=== PATIENT | female | born 1975 | race Caucasian/White ===

== ENCOUNTER 2021-03-07 17:59 | Emergency (ER) | payer BC, OTHER ==
[~2021-03-07] VITALS: Ht 177.8 cm; Wt 78.9 kg
[~2021-03-07 17:59] MED LIST: LEXAPRO20 MG PO; NAPROSYN500 MG PO
[2021-03-07 18:32] LABS: URINE BILIRUBIN NEGATIVE (Negative); URINE BLOOD 1+ (Negative); URINE CLARITY CLEAR; URINE GLUCOSE-RANDOM* NEGATIVE (Negative); URINE KETONES NEGATIVE (Negative); URINE LEUKOCYTES-REFLEX NEGATIVE (Negative); URINE NITRITE-REFLEX NEGATIVE (Negative); URINE PROTEIN (DIPSTICK) NEGATIVE (Negative); URINE SPECIFIC GRAVITY <= 1.005 (1.005-1.035); URINE UROBILINOGEN 0.2 E.U./dl (0.2-1.0)
[2021-03-07 18:33] LABS: URINE COLOR STRAW
[2021-03-07 18:41] LABS: BACTERIA-REFLEX None Seen /HPF (None Seen); SQUAMOUS 0-3 Few /LPF (0-3); URINE RBC 1-2 Rare /HPF (NONE SEEN); URINE WBC-REFLEX 0-5 Rare /HPF (0-5)
[2021-03-07 19:56] LABS: HEMATOCRIT 39.3 % (37.0-47.0); HEMOGLOBIN 12.9 gm/dL (12.0-15.0); MCH 31.3 pg (26.0-34.0); MCHC 32.8 g/dL (28.0-37.0); MCV 95.5 fL (80.0-100.0); RBC 4.11 mil/uL (4.20-5.00); RDW 13.7 % (10.5-14.5); WBC 5.1 thou/uL (4.0-11.0)
[2021-03-07 20:05] LABS: ANION GAP < 0 mmol/L (7-16); BUN 10 mg/dL (7-18); CALCIUM 8.5 mg/dL (8.5-10.1); CHLORIDE 100 mmol/L (98-107); CO2 35 mmol/L (21-32); CREATININE 0.7 mg/dL (0.6-1.0); GLUCOSE 96 mg/dL (74-106); POTASSIUM 3.4 mmol/L (3.5-5.1); SODIUM 128 mmol/L (136-145)
[2021-03-07 20:11] LABS: ALBUMIN 3.3 g/dL (3.4-5.0); LIPASE 82 U/L (73-393); SGOT 19 U/L (15-37); SGPT 24 U/L (14-59); TOTAL BILIRUBIN 0.3 mg/dL (0.2-1.0); TOTAL PROTEIN 7.3 g/dL (6.4-8.2)
[2021-03-08 00:47] VITALS: BP 119/80
== END 2021-03-08 00:49 | disposition home or self-care (01) ==
LOC: ER 17:59
PROVIDERS: Nurse Practitioner Family
DX: N83.9 Noninflammatory disorder of ovary, fallopian tube and broad ligament, unspecified (principal); R33.9 Retention of urine, unspecified; K59.00 Constipation, unspecified; D25.9 Leiomyoma of uterus, unspecified; F32.9 Major depressive disorder, single episode, unspecified; F17.210 Nicotine dependence, cigarettes, uncomplicated; Z91.09 Other allergy status, other than to drugs and biological substances; Z79.899 Other long term (current) drug therapy; Z79.1 Long term (current) use of non-steroidal anti-inflammatories (NSAID); Z88.0 Allergy status to penicillin

== ENCOUNTER 2021-03-16 02:00 | Emergency (ER) | payer BC, OTHER ==
[~2021-03-16] VITALS: Ht 170.2 cm; Wt 68.0 kg
[2021-03-16 03:23] LABS: URINE BILIRUBIN NEGATIVE (Negative); URINE BLOOD TRACE (Negative); URINE CLARITY CLEAR; URINE COLOR YELLOW; URINE GLUCOSE-RANDOM* NEGATIVE (Negative); URINE KETONES NEGATIVE (Negative); URINE LEUKOCYTES-REFLEX NEGATIVE (Negative); URINE NITRITE-REFLEX NEGATIVE (Negative); URINE PROTEIN (DIPSTICK) NEGATIVE (Negative); URINE UROBILINOGEN 0.2 E.U./dl (0.2-1.0)
[2021-03-16 03:26] LABS: ABSOLUTE NEUTROPHILS 3.9 thou/uL (1.4-8.2); BASOPHILS 0.6 % (0.0-2.0); EOSINOPHILS 2.9 % (0.0-3.0); HEMATOCRIT 36.5 % (37.0-47.0); HEMOGLOBIN 12.2 gm/dL (12.0-15.0); LYMPHOCYTES 19.1 % (24.0-44.0); MCH 31.9 pg (26.0-34.0); MCHC 33.5 g/dL (28.0-37.0); MCV 95.3 fL (80.0-100.0); MONOCYTES 9.5 % (1.0-8.0); PLATELET COUNT 237 thou/uL (150-400); POLYS 67.9 % (36.0-66.0); RBC 3.83 mil/uL (4.20-5.00); RDW 13.6 % (10.5-14.5); WBC 5.7 thou/uL (4.0-11.0)
[2021-03-16 03:30] LABS: CALCIUM 8.5 mg/dL (8.5-10.1); CREATININE 0.6 mg/dL (0.6-1.0); POTASSIUM 3.7 mmol/L (3.5-5.1)
[2021-03-16 04:20] VITALS: BP 106/57
== END 2021-03-16 04:20 | disposition home or self-care (01) ==
LOC: ER 02:00
PROVIDERS: Emergency Medicine
DX: R33.9 Retention of urine, unspecified (principal); R30.0 Dysuria; Z88.0 Allergy status to penicillin; F17.210 Nicotine dependence, cigarettes, uncomplicated